=== PATIENT | male | born 1950 | race Caucasian/White ===

== ENCOUNTER → 2024-11-15 | Day surgery (SDC) | payer MEDICARE, MEDICAID ==
[~2024-11-15] VITALS: Ht 170.2 cm; Wt 75.0 kg
[~2024-11-15] MED LIST: ALLO300T2 PO; BALANCED SALT IRRIG SOLN 15ML ONE; BUPIVACAINE HCL/PF 0.75% (7.5MG/ML) 10ML ONE; CIPROFLOXACIN 0.3% OPHTH SOLN 2.5ML ONE; FINA5TAB11 PO; IBUP-2028 PO; LIDOCAINE HCL/EPINEPHRINE 2%-EPI 1:200,000 20ML VIAL ONE; METH25TA7 PO; NEO/POLYMYX B SULF/DEXAMETH OPHTH OINT 3.5GM ONE; ONDANSETRON HCL 4MG/2ML INJ IV PRN; PREDNISOLONE ACETATE 1% OPHTH DROPS 5ML ONE; TAMS0.4C31 PO; TETRACAINE 0.5% OPHTH DROPS 4ML ONE
[2024-11-15 11:45] VITALS: TEMP 36.9; O2SAT 97
[2024-11-15 12:08] LABS: BASOPHILS % 0.7 % (0.0-2.0); EOSINOPHILS % 1.6 % (0.0-5.0); HEMATOCRIT. 43.6 % (42.0-52.0); HEMOGLOBIN. 14.7 g/dL (14.0-18.0); LYMPHOCYTES % 30.8 % (20.0-50.0); MEAN PLATELET VOLUME 8.0 fl (7.4-10.4); MONOCYTES % 8.7 % (2.0-8.0); NEUTROPHILS % 58.2 % (40.0-76.0); PLATELET 230 x1000/uL (130-400); RED BLOOD CELL COUNT 4.44 mill/uL (4.7-6.1); RED CELL DISTRIBUTION WIDTH 14.1 % (11.6-14.6)
[2024-11-15 12:20] LABS: CREATININE 0.9 mg/dL (0.6-1.3); UREA NITROGEN BLOOD 10 mg/dL (9-23)
[2024-11-15 12:22] LABS: ASPARTATE AMINOTRANSFERASE 18 IU/L (<34)
[2024-11-15 12:23] LABS: BILIRUBIN DIRECT 0.2 mg/dL (<=3.0); BILIRUBIN TOTAL 0.7 mg/dL (0.1-1.0); PROTEIN TOTAL 7.7 g/dL (6.0-8.3)
[2024-11-15 12:32] LABS: INR 1.0
[2024-11-15 12:52] VITALS: O2SAT 99
[2024-11-15 13:44] VITALS: BP 151/101; PULSE 58; RESP 16; TEMP 98.5
[2024-11-15] MEDS: HYDRALAZINE 20MG/ML VIAL IV PRN (16:34)
== END | disposition home or self-care (01) ==
LOC: ER 11:09 → EDBEDREQ 13:00 → EDBEDREQTM 13:00 → CANRESERV 13:22 → ENRESERV 13:22 → ER 13:57 → OR 15:20 → CMPBEDREQ 11-16 10:34
PROVIDERS: ATTEND Ophthalmology
DX: T85.328A Displacement of other ocular prosthetic devices, implants and grafts, initial encounter (principal); E78.5 Hyperlipidemia, unspecified; M19.90 Unspecified osteoarthritis, unspecified site; I49.1 Atrial premature depolarization; I25.2 Old myocardial infarction; Z79.1 Long term (current) use of non-steroidal anti-inflammatories (NSAID); Z79.899 Other long term (current) drug therapy; Z79.01 Long term (current) use of anticoagulants; Z98.890 Other specified postprocedural states; X58.XXXA Exposure to other specified factors, initial encounter; Y93.89 Activity, other specified; Y92.89 Other specified places as the place of occurrence of the external cause; Y99.8 Other external cause status
CPT/HCPCS: 65920; 80076; 80048; 85025; 85610; 85730; 86850; 86900; 86901; 36415; 93005; 99285; J3490 ×2; J0690; J0360